=== PATIENT | female | born 1955 | race Caucasian/White ===

== ENCOUNTER 2022-08-12 08:29 | Day surgery (SDC) | payer MEDICARE ==
[2022-08-12] MEDS ORDERED: fentaNYL 100 MCG/2 ML SDV IV ONE (08:30)
[2022-08-12] MEDS ORDERED: Lactated Ringers 1,000 ML IV PRN (08:30)
[2022-08-12] MEDS ORDERED: Sodium Chloride 0.9% 10 ML Syringe IV ONE (08:30)
[2022-08-12] MEDS ORDERED: Sodium Chloride 0.9% 10 ML Syringe FLUSH PRN (08:30)
[2022-08-12] MEDS ORDERED: Midazolam 1 MG/ML 2 ML SDV IV ONE (08:30)
[2022-08-12] MEDS ORDERED: acetaZOLAMIDE 500 MG Cap.ER PO ONE (09:15)
== END 2022-08-12 10:55 | disposition home or self-care (01) ==
LOC: FB.SDS 08:29
PROVIDERS: ATTEND Ophthalmology
DX: H26.9 Unspecified cataract (principal); M19.90 Unspecified osteoarthritis, unspecified site; M85.80 Other specified disorders of bone density and structure, unspecified site; D68.51 Activated protein C resistance; Z79.899 Other long term (current) drug therapy; Z79.82 Long term (current) use of aspirin; Z98.890 Other specified postprocedural states; Z91.048 Other nonmedicinal substance allergy status; Z85.3 Personal history of malignant neoplasm of breast; Z85.118 Personal history of other malignant neoplasm of bronchus and lung
CPT/HCPCS: 00142; A9270-GY; J2250; J3010; J3490; V2632

== ENCOUNTER 2022-08-26 09:12 | Day surgery (SDC) | payer BC, MEDICARE ==
[2022-08-26] MEDS ORDERED: Midazolam 1 MG/ML 2 ML SDV IV ONE (09:13)
[2022-08-26] MEDS ORDERED: fentaNYL 100 MCG/2 ML SDV IV ONE (09:13)
[2022-08-26] MEDS ORDERED: Lactated Ringers 1,000 ML IV PRN (09:30)
[2022-08-26] MEDS ORDERED: Sodium Chloride 0.9% 10 ML Syringe FLUSH PRN (09:30)
[2022-08-26] MEDS: acetaZOLAMIDE 500 MG Cap.ER PO ONE (11:23)
== END 2022-08-26 11:27 | disposition home or self-care (01) ==
LOC: FB.SDS 09:12
PROVIDERS: ATTEND Ophthalmology
DX: H26.9 Unspecified cataract (principal); M19.90 Unspecified osteoarthritis, unspecified site; Z98.890 Other specified postprocedural states; Z79.899 Other long term (current) drug therapy; Z79.82 Long term (current) use of aspirin; Z91.048 Other nonmedicinal substance allergy status
CPT/HCPCS: 00142; 66984; A9270; J2250; J3010; V2632